=== PATIENT | female | born 1955 | race African-American/Black ===

== ENCOUNTER 2017-10-27 06:50 | Emergency (ER) | payer OTHER ==
[~2017-10-27] VITALS: Ht 172.7 cm; Wt 156.5 kg
[~2017-10-27 06:50] MED LIST: ACYCLOVIR 200200 MG PO; ATACAND16 MG; BENICAR; COZAAR 25 MG TA25 M1 PO; DETROL LA2 MG PO; LOVASTATIN 20 M20 MG PO; NAPROSYN500 MG PO; NAPROXEN25 GM; NEOMYC-POLYM-DEX5 ML OPHTHALMIC; OXYBUTYNIN 5 MG5 M2 PO; PAXIL10 MG PO; PREDNISONE 20 M20 MG PO; PROTONIX40 M1 PO
[2017-10-27] MEDS ORDERED: MOBIC15 MG PO (08:11)
[2017-10-27] MEDS ORDERED: NORCO 5-325 TA1 EACH PO (08:13)
[2017-10-27] MEDS ORDERED: VALIUM5 MG PO (08:13)
[2017-10-27 09:07] VITALS: BP 150/74
== END 2017-10-27 18:47 | disposition home or self-care (01) ==
LOC: ER 06:50
DX: M54.30 Sciatica, unspecified side (principal); I10 Essential (primary) hypertension; E78.00 Pure hypercholesterolemia, unspecified; M19.90 Unspecified osteoarthritis, unspecified site; Z90.49 Acquired absence of other specified parts of digestive tract; Z88.0 Allergy status to penicillin